=== PATIENT | female | born 1990 | race Two or more races ===

== ENCOUNTER 2018-03-28 23:43 | Emergency (ER) | payer BC ==
[2018-03-29] MEDS ORDERED: METOCLOPRAMIDE 10 MG INJ IM (00:30)
[2018-03-29] MEDS: DIPHENHYDRAMINE 50 MG INJ IM (00:48)
== END 2018-03-29 00:53 | disposition home or self-care (01) ==
LOC: FTE 23:43
DX: R21 Rash and other nonspecific skin eruption (principal); J45.909 Unspecified asthma, uncomplicated; Z79.82 Long term (current) use of aspirin
CPT/HCPCS: 96372; 99284-25; J1200

== ENCOUNTER 2018-07-27 20:17 | Emergency (ER) | payer BC ==
[2018-07-27] MEDS: ALBUTEROL 0.083% (NEB) 2.5 MG/3 ML AMP NEB (20:56)
[2018-07-27] MEDS: IPRATROPIUM (NEB) 0.5 MG/2.5 ML AMP NEB (20:56)
[2018-07-27 21:07] LABS: URINE BLOOD (Dip) POC Negative (NEGATIVE); URINE GLUCOSE (Dip) POC Negative (NEGATIVE); URINE KETONES (Dip) POC Trace (NEGATIVE); URINE LEUKOCYTE EST (Dip) POC Trace (NEGATIVE); URINE NITRITE (Dip) POC Negative (NEGATIVE); URINE TOTAL PROTEIN POC 1+ (NEGATIVE)
[2018-07-27 21:07] LABS: URINE PH (Dip) POC 5.5 (5.0-8.5)
[2018-07-27] MEDS: ONDANSETRON (ODT) 4 MG TAB ODT (21:11)
== END 2018-07-27 23:01 | disposition home or self-care (01) ==
LOC: FTE 20:17
DX: O99.511 Diseases of the respiratory system complicating pregnancy, first trimester (principal); J45.20 Mild intermittent asthma, uncomplicated; O23.11 Infections of bladder in pregnancy, first trimester; O21.0 Mild hyperemesis gravidarum; Z3A.09 9 weeks gestation of pregnancy
CPT/HCPCS: 81003; 94664; 99283-25

== ENCOUNTER 2018-08-14 23:42 | Emergency (ER) | payer BC ==
[2018-08-15 01:21] LABS: ADD MAN DIFF? NO
[2018-08-15 01:23] LABS: WHITE BLOOD COUNT 10.7 10^3/ul (4.8-10.8)
[2018-08-15 01:23] LABS: BASOPHILS % 0.1 % (0.0-2.0); EOSINOPHILS # 0.2 10^3/ul (0.0-0.5); EOSINOPHILS % 1.5 % (0.0-7.0); HEMATOCRIT 41.2 % (37.0-47.0); HEMOGLOBIN 14.1 g/dl (12.0-16.0); LYMPHOCYTES # 2.3 10^3/ul (0.8-2.9); LYMPHOCYTES % 21.3 % (15.0-51.0); MEAN CORPUSCULAR HEMOGLOBIN 29.3 pg (29.0-33.0); MEAN CORPUSCULAR HGB CONC 34.2 g/dl (32.0-37.0); MEAN CORPUSCULAR VOLUME 85.7 fl (82.0-101.0); MEAN PLATELET VOLUME 11.4 fl (7.4-10.4); MONOCYTE # 0.9 10^3/ul (0.3-0.9); MONOCYTES % 7.9 % (0.0-11.0); NEUTROPHIL # 7.4 10^3/ul (1.6-7.5); NEUTROPHILS % 68.8 % (39.0-77.0); PLATELET COUNT 248 10^3/UL (140-415); RED BLOOD COUNT 4.81 10^6/ul (4.20-5.40); RED CELL DISTRIBUTION WIDTH 11.6 % (11.5-14.5)
[2018-08-15 01:31] LABS: ADD UMIC YES; UR ASCORBIC ACID NEGATIVE (NEGATIVE); UR BACTERIA FEW /HPF (NONE SEEN); UR BILIRUBIN (Dip) NEGATIVE (NEGATIVE); UR BLOOD (Dip) NEGATIVE (NEGATIVE); UR CLARITY SLIGHTLY CLOUDY (CLEAR); UR COLOR AMBER (YELLOW); UR GLUCOSE (Dip) NEGATIVE (NEGATIVE); UR KETONES (Dip) NEGATIVE (NEGATIVE); UR LEUKOCYTE ESTERASE (Dip) NEGATIVE Leu/ul (NEGATIVE); UR MUCUS MANY /HPF (NONE SEEN); UR NITRITE (Dip) NEGATIVE (NEGATIVE); UR RBC 2 /HPF (0-5); UR SPECIFIC GRAVITY (Dip) 1.028 (1.003-1.030); UR SQUAMOUS EPITHELIAL CELL FEW /HPF (FEW); UR TOTAL PROTEIN (Dip) 1+ mg/dl (NEGATIVE); UR UROBILINOGEN (Dip) 1+ mg/dL (NEGATIVE); UR WBC 4 /HPF (0-5)
[2018-08-15] MEDS: ONDANSETRON 4 MG INJ IV (01:35)
[2018-08-15] MEDS: SOD CHLORIDE 0.9% 1,000 ML IV (01:35)
[2018-08-15 03:44] LABS: ALBUMIN 4.2 g/dl (3.3-4.9); ALBUMIN/GLOBULIN RATIO 1.07; ALKALINE PHOSPHATASE 58 IU/L (42-121); ANION GAP 13 (8-16); ASPARTATE AMINO TRANSFERASE 21 IU/L (15-46); BILIRUBIN,INDIRECT 0.7 mg/dl (0-1.1); BILIRUBIN,TOTAL 0.7 mg/dl (0.2-1.3); BLOOD UREA NITROGEN 7 mg/dl (7-20); CALCIUM 9.3 mg/dl (8.4-10.2); CARBON DIOXIDE 25 mmol/L (21-31); CHLORIDE 107 mmol/L (97-110); CREATININE 0.52 mg/dl (0.44-1.00); GLUCOSE 117 mg/dl (70-220); POTASSIUM 3.8 mmol/L (3.5-5.1); SODIUM 141 mmol/L (135-144); TOTAL PROTEIN 8.1 g/dl (6.1-8.1)
[2018-08-15 03:54] LABS: ALANINE AMINOTRANSFERASE < 6 IU/L (13-69)
== END 2018-08-15 04:18 | disposition home or self-care (01) ==
LOC: FTE 23:42
DX: O21.9 Vomiting of pregnancy, unspecified (principal); R10.2 Pelvic and perineal pain; O99.52 Diseases of the respiratory system complicating childbirth; J45.909 Unspecified asthma, uncomplicated; Z3A.10 10 weeks gestation of pregnancy
CPT/HCPCS: 36415; 76705; 76801; 80053; 81001; 84702; 85025; 86900; 86901; 96374; 99285-25

== ENCOUNTER 2018-09-28 16:49 | Emergency (ER) | payer BC | END 2018-09-28 17:27 | disposition home or self-care (01) | LOC: FTE 16:49 | DX: O99.89 Other specified diseases and conditions complicating pregnancy, childbirth and the puerperium (principal); R05 Cough; O99.512 Diseases of the respiratory system complicating pregnancy, second trimester; J45.909 Unspecified asthma, uncomplicated; Z3A.18 18 weeks gestation of pregnancy; Z79.82 Long term (current) use of aspirin | CPT/HCPCS: 99283; Z7502 ==

== ENCOUNTER 2018-12-31 20:30 | Emergency (ER) | payer BC | END 2019-01-01 00:43 | disposition home or self-care (01) | LOC: FTE 20:30 | DX: H00.014 Hordeolum externum left upper eyelid (principal); J45.909 Unspecified asthma, uncomplicated; Z79.82 Long term (current) use of aspirin | CPT/HCPCS: 99283; Z7502 ==

== ENCOUNTER 2019-01-19 00:20 | Emergency (ER) | payer BC ==
[2019-01-19] MEDS: HYDROCODONE/APAP (5/325) TAB PO (05:18)
== END 2019-01-19 05:36 | disposition home or self-care (01) ==
LOC: FTE 00:20
DX: O99.613 Diseases of the digestive system complicating pregnancy, third trimester (principal); K64.4 Residual hemorrhoidal skin tags; O99.513 Diseases of the respiratory system complicating pregnancy, third trimester; J45.909 Unspecified asthma, uncomplicated; Z3A.33 33 weeks gestation of pregnancy
CPT/HCPCS: 99284; Z7610

== ENCOUNTER 2019-02-03 02:19 | Inpatient (IN) | payer BC, MEDICAID ==
[2019-02-03 03:46] LABS: UR CLARITY CLOUDY (CLEAR); UR COLOR AMBER (YELLOW)
[2019-02-03 03:47] LABS: UR BILIRUBIN (Dip) NEGATIVE (NEGATIVE); UR BLOOD (Dip) NEGATIVE (NEGATIVE); UR GLUCOSE (Dip) 1+ mg/dL (NEGATIVE); UR KETONES (Dip) NEGATIVE (NEGATIVE); UR NITRITE (Dip) NEGATIVE (NEGATIVE); UR TOTAL PROTEIN (Dip) 1+ mg/dl (NEGATIVE); UR UROBILINOGEN (Dip) NEGATIVE (NEGATIVE)
[2019-02-03 03:48] LABS: ADD UMIC YES; UR ASCORBIC ACID 20 mg/dL (NEGATIVE); UR LEUKOCYTE ESTERASE (Dip) 2+ Leu/ul (NEGATIVE)
[2019-02-03 03:52] LABS: UR BACTERIA FEW /HPF (NONE SEEN); UR MUCUS MODERATE /HPF (NONE SEEN); UR NONSQUAMOUS EPITHELIAL CELL 2 /HPF (NONE SEEN); UR RBC 2 /HPF (0-5); UR SQUAMOUS EPITHELIAL CELL MANY /HPF (FEW); UR WBC 12 /HPF (0-5)
[2019-02-03] MEDS: LACTATED RINGER'S 1,000 ML IV ×3 (03:58→17:42)
[2019-02-03 04:07] LABS: ADD MAN DIFF? NO
[2019-02-03 04:11] LABS: BASOPHILS % 0.3 % (0.0-2.0); EOSINOPHILS # 0.1 10^3/ul (0.0-0.5); EOSINOPHILS % 0.4 % (0.0-7.0); HEMATOCRIT 30.1 % (37.0-47.0); HEMOGLOBIN 9.7 g/dl (12.0-16.0); LYMPHOCYTES # 2.2 10^3/ul (0.8-2.9); LYMPHOCYTES % 18.5 % (15.0-51.0); MEAN CORPUSCULAR HEMOGLOBIN 28.3 pg (29.0-33.0); MEAN CORPUSCULAR HGB CONC 32.2 g/dl (32.0-37.0); MEAN CORPUSCULAR VOLUME 87.8 fl (82.0-101.0); MONOCYTE # 0.8 10^3/ul (0.3-0.9); MONOCYTES % 6.8 % (0.0-11.0); NEUTROPHIL # 8.6 10^3/ul (1.6-7.5); NEUTROPHILS % 72.9 % (39.0-77.0); PLATELET COUNT 185 10^3/UL (140-415); RED BLOOD COUNT 3.43 10^6/ul (4.20-5.40); RED CELL DISTRIBUTION WIDTH 13.8 % (11.5-14.5)
[2019-02-03 04:11] LABS: WHITE BLOOD COUNT 11.8 10^3/ul (4.8-10.8)
[2019-02-03] MEDS ORDERED: ACETAMINOPHEN 325 MG TAB PO (09:00)
[2019-02-03] MEDS: ACETAMINOPHEN 325 MG TAB PO (09:23)
[2019-02-03] MEDS: CEFAZOLIN 2 GM/50 ML (PMX) 50 ML IVPB ×2 (12:46→22:39)
[2019-02-03] MEDS: FERROUS SULFATE (EC) 325 MG TAB PO (15:00)
[2019-02-03] MEDS: PRENATAL VITAMIN PO (15:00)
[2019-02-04] MEDS: LACTATED RINGER'S 1,000 ML IV ×2 (02:02→09:52)
[2019-02-04] MEDS: CEFAZOLIN 2 GM/50 ML (PMX) 50 ML IVPB ×2 (05:59→14:02)
[2019-02-04 08:20] LABS: ADD MAN DIFF? NO
[2019-02-04 08:30] LABS: BASOPHILS % 0.2 % (0.0-2.0); EOSINOPHILS # 0.1 10^3/ul (0.0-0.5); EOSINOPHILS % 0.6 % (0.0-7.0); HEMATOCRIT 30.4 % (37.0-47.0); HEMOGLOBIN 9.6 g/dl (12.0-16.0); LYMPHOCYTES # 1.9 10^3/ul (0.8-2.9); LYMPHOCYTES % 23.2 % (15.0-51.0); MEAN CORPUSCULAR HEMOGLOBIN 28.4 pg (29.0-33.0); MEAN CORPUSCULAR HGB CONC 31.6 g/dl (32.0-37.0); MEAN CORPUSCULAR VOLUME 89.9 fl (82.0-101.0); MEAN PLATELET VOLUME 11.4 fl (7.4-10.4); MONOCYTE # 0.6 10^3/ul (0.3-0.9); NEUTROPHIL # 5.4 10^3/ul (1.6-7.5); NEUTROPHILS % 66.9 % (39.0-77.0); PLATELET COUNT 155 10^3/UL (140-415); RED BLOOD COUNT 3.38 10^6/ul (4.20-5.40)
[2019-02-04] MEDS: FERROUS SULFATE (EC) 325 MG TAB PO (09:51)
[2019-02-04] MEDS: PRENATAL VITAMIN PO (09:51)
== END 2019-02-04 15:40 | disposition home or self-care (01) | DRG 832 ==
LOC: OBT 02:19 → L-D 02:21 → OBT 08:37 → L-D 07:30 → PP1 14:51
DX: O23.43 Unspecified infection of urinary tract in pregnancy, third trimester (principal); O47.03 False labor before 37 completed weeks of gestation, third trimester; Z3A.35 35 weeks gestation of pregnancy
CPT/HCPCS: 36415; 76815; 76818; 81001; 85025; 87086; 96360; 96361

== ENCOUNTER 2019-02-24 18:56 | Inpatient (IN) | payer BC ==
[~2019-02-24 18:56] MED LIST: OXYTOCIN 30 UNITS/LR 500 ML BAG IV
[2019-02-24] MEDS ORDERED: CARBOPROST 250 MCG INJ IM ×2 (19:30→23:00)
[2019-02-24] MEDS ORDERED: MISOPROSTOL 200 MCG TAB PR ×2 (19:30→23:00)
[2019-02-24] MEDS ORDERED: METHYLERGONOVINE 0.2 MG INJ IM ×2 (19:30→23:00)
[2019-02-24] MEDS ORDERED: OXYTOCIN 30 UNITS/LR 500 ML IV ×2 (19:30→23:00)
[2019-02-24] MEDS: LACTATED RINGER'S 1,000 ML IV (19:56)
[2019-02-24 20:14] LABS: ADD MAN DIFF? NO
[2019-02-24 20:20] LABS: BASOPHILS % 0.2 % (0.0-2.0); EOSINOPHILS # 0.1 10^3/ul (0.0-0.5); EOSINOPHILS % 0.5 % (0.0-7.0); HEMOGLOBIN 10.6 g/dl (12.0-16.0); LYMPHOCYTES # 2.7 10^3/ul (0.8-2.9); LYMPHOCYTES % 21.1 % (15.0-51.0); MEAN CORPUSCULAR HEMOGLOBIN 27.7 pg (29.0-33.0); MEAN CORPUSCULAR HGB CONC 32.1 g/dl (32.0-37.0); MEAN CORPUSCULAR VOLUME 86.2 fl (82.0-101.0); MEAN PLATELET VOLUME 11.9 fl (7.4-10.4); MONOCYTE # 1.1 10^3/ul (0.3-0.9); MONOCYTES % 8.2 % (0.0-11.0); NEUTROPHILS % 69.2 % (39.0-77.0); PLATELET COUNT 219 10^3/UL (140-415); RED BLOOD COUNT 3.83 10^6/ul (4.20-5.40); RED CELL DISTRIBUTION WIDTH 14.1 % (11.5-14.5)
[2019-02-24 20:44] LABS: INR 0.96; PARTIAL THROMBOPLASTIN TIME 25.1 Sec (23.0-35.0); PROTIME 12.9 Sec (11.9-14.9)
[2019-02-24] MEDS ORDERED: OXYTOCIN 10 UNIT INJ (21:49)
[2019-02-24] MEDS ORDERED: ONDANSETRON 4 MG INJ (21:49)
[2019-02-24] MEDS ORDERED: morphine SULFATE/PF (10 MG/10 ML) INJ (21:49)
[2019-02-24] MEDS ORDERED: IBUPROFEN 800 MG TAB PO (23:00)
[2019-02-24] MEDS ORDERED: LANOLIN HPA 1 PKT TOP (23:00)
[2019-02-24] MEDS ORDERED: METHYLERGONOVINE 0.2 MG TAB PO (23:00)
[2019-02-24] MEDS: OXYTOCIN 30 UNITS/LR 500 ML IV (23:22)
[2019-02-24] MEDS ORDERED: ONDANSETRON 4 MG INJ IV (23:30)
[2019-02-24] MEDS ORDERED: NALOXONE (0.4 MG/ML) INJ IV (23:30)
[2019-02-25] MEDS: CEFAZOLIN 2 GM/50 ML (PMX) 50 ML IVPB (01:05)
[2019-02-25] MEDS: KETOROLAC 30 MG INJ IV ×3 (02:04→22:12)
[2019-02-25] MEDS: DIPHENHYDRAMINE 50 MG INJ IV ×2 (03:29→18:42)
[2019-02-25] MEDS: LACTATED RINGER'S 1,000 ML IV ×3 (06:38→14:16)
[2019-02-25 08:35] LABS: ADD MAN DIFF? NO
[2019-02-25 08:47] LABS: BASOPHILS % 0.1 % (0.0-2.0); EOSINOPHILS # 0.1 10^3/ul (0.0-0.5); EOSINOPHILS % 0.6 % (0.0-7.0); HEMATOCRIT 27.7 % (37.0-47.0); HEMOGLOBIN 8.9 g/dl (12.0-16.0); LYMPHOCYTES % 19.8 % (15.0-51.0); MEAN CORPUSCULAR HEMOGLOBIN 27.7 pg (29.0-33.0); MEAN CORPUSCULAR HGB CONC 32.1 g/dl (32.0-37.0); MEAN CORPUSCULAR VOLUME 86.3 fl (82.0-101.0); MEAN PLATELET VOLUME 11.6 fl (7.4-10.4); MONOCYTE # 0.7 10^3/ul (0.3-0.9); MONOCYTES % 7.2 % (0.0-11.0); NEUTROPHIL # 7.1 10^3/ul (1.6-7.5); NEUTROPHILS % 71.5 % (39.0-77.0); PLATELET COUNT 129 10^3/UL (140-415); RED BLOOD COUNT 3.21 10^6/ul (4.20-5.40); RED CELL DISTRIBUTION WIDTH 14.1 % (11.5-14.5)
[2019-02-25] MEDS ORDERED: BISACODYL 10 MG SUPP PR (09:00)
[2019-02-25 09:12] LABS: Estimated GFR > 60 mL/min (>60)
[2019-02-25 09:29] LABS: ANION GAP 5 (5-13); BLOOD UREA NITROGEN 5 mg/dl (7-20); CALCIUM 8.7 mg/dl (8.4-10.2); CARBON DIOXIDE 23 mmol/L (21-31); CHLORIDE 109 mmol/L (97-110); CREATININE 0.47 mg/dl (0.44-1.00); GLUCOSE 82 mg/dl (70-220); POTASSIUM 3.6 mmol/L (3.5-5.1); SODIUM 137 mmol/L (135-144)
[2019-02-25] MEDS ORDERED: FERROUS GLUCONATE (EC) 325 MG TAB PO (10:00)
[2019-02-25] MEDS: SENNA/DOCUSATE NA (8.6MG/50MG) TAB PO ×2 (10:02→21:27)
[2019-02-25] MEDS: FERROUS SULFATE (EC) 325 MG TAB PO ×2 (12:37→21:27)
[2019-02-25] MEDS: morphine 2 MG INJ IV (16:21)
[2019-02-25 22:30] LABS: RAPID PLASMA REAGIN NONREACTIVE (NR)
[2019-02-26] MEDS: LACTATED RINGER'S 1,000 ML IV (00:30)
[2019-02-26] MEDS: HYDROCODONE/APAP (5/325) TAB PO ×4 (02:58→23:46)
[2019-02-26] MEDS: MAGNESIUM HYDROXIDE 30ML CUP PO ×3 (06:22→20:55)
[2019-02-26] MEDS: BISACODYL 10 MG SUPP PR ×3 (07:11→21:00)
[2019-02-26] MEDS: SENNA/DOCUSATE NA (8.6MG/50MG) TAB PO ×2 (09:00→20:54)
[2019-02-26] MEDS ORDERED: MAGNESIUM HYDROXIDE 30ML CUP PO (09:00)
[2019-02-26] MEDS: FERROUS SULFATE (EC) 325 MG TAB PO ×3 (10:03→20:54)
[2019-02-26] MEDS: IBUPROFEN 800 MG TAB PO (12:04)
[2019-02-27] MEDS: IBUPROFEN 800 MG TAB PO ×2 (02:01→16:10)
[2019-02-27 08:28] LABS: ADD MAN DIFF? NO
[2019-02-27 08:35] LABS: WHITE BLOOD COUNT 9.2 10^3/ul (4.8-10.8)
[2019-02-27 08:35] LABS: BASOPHILS % 0.1 % (0.0-2.0); EOSINOPHILS # 0.2 10^3/ul (0.0-0.5); EOSINOPHILS % 1.6 % (0.0-7.0); HEMATOCRIT 31.2 % (37.0-47.0); HEMOGLOBIN 9.6 g/dl (12.0-16.0); LYMPHOCYTES # 1.9 10^3/ul (0.8-2.9); MEAN CORPUSCULAR HEMOGLOBIN 27.1 pg (29.0-33.0); MEAN CORPUSCULAR HGB CONC 30.8 g/dl (32.0-37.0); MEAN CORPUSCULAR VOLUME 88.1 fl (82.0-101.0); MEAN PLATELET VOLUME 11.1 fl (7.4-10.4); MONOCYTE # 0.7 10^3/ul (0.3-0.9); MONOCYTES % 7.4 % (0.0-11.0); NEUTROPHIL # 6.4 10^3/ul (1.6-7.5); NEUTROPHILS % 69.1 % (39.0-77.0); PLATELET COUNT 166 10^3/UL (140-415); RED BLOOD COUNT 3.54 10^6/ul (4.20-5.40); RED CELL DISTRIBUTION WIDTH 14.5 % (11.5-14.5)
[2019-02-27] MEDS: BISACODYL 10 MG SUPP PR (09:00)
[2019-02-27] MEDS: MAGNESIUM HYDROXIDE 30ML CUP PO (09:00)
[2019-02-27] MEDS ORDERED: DIPHTH/TET/ACEL PERTUSS (ADULT) 0.5 ML VIAL IM* (09:00)
[2019-02-27] MEDS: MEASLES,MUMPS,RUBELLA VACCINE INJ SC* (09:00)
[2019-02-27] MEDS: SENNA/DOCUSATE NA (8.6MG/50MG) TAB PO (09:38)
[2019-02-27] MEDS: HYDROCODONE/APAP (5/325) TAB PO ×2 (09:38→16:10)
[2019-02-27] MEDS: FERROUS SULFATE (EC) 325 MG TAB PO ×2 (09:41→13:09)
[2019-02-27] MEDS: DIPHTH/TET/ACEL PERTUSS (ADULT) 0.5 ML VIAL IM* (17:47)
== END 2019-02-27 18:50 | disposition home or self-care (01) | DRG 788 ==
LOC: OBT 18:56 → L-D 02-25 00:30 → PP1 02-25 02:38 → OBT 19:10 → L-D 19:30
PROVIDERS: Obstetrics & Gynecology
PROC: 10D00Z1 Extraction of Products of Conception, Low, Open Approach (ICD-10-PCS; principal; 2019-02-24 22:00)
DX: O65.5 Obstructed labor due to abnormality of maternal pelvic organs (principal); O99.013 Anemia complicating pregnancy, third trimester; O34.211 Maternal care for low transverse scar from previous cesarean delivery; Z3A.38 38 weeks gestation of pregnancy; Z37.0 Single live birth
CPT/HCPCS: 80048; 85025; 85610; 85730; 86592; 86850; 86900; 86901; 90715; 99464